=== PATIENT | female | born 1995 | race Caucasian/White ===

== ENCOUNTER → 2025-01-15 08:22 | Outpatient (REF) | payer OTHER, SELFPAY | LOC: HWRAD 08:22 | PROVIDERS: ATTENDING PHYSICIAN Obstetrics & Gynecology Obstetrics; FAMILY PHYSICIAN Family Medicine | DX: R10.20 Pelvic and perineal pain unspecified side (principal); D27.0 Benign neoplasm of right ovary; D27.1 Benign neoplasm of left ovary | CPT/HCPCS: 76830; 76856 ==